=== PATIENT | male | born 1935 | race Caucasian/White ===

== ENCOUNTER 2021-06-02 10:31 | Emergency (ER) | payer MEDICARE ==
[~2021-06-02] VITALS: Ht 175.3 cm; Wt 72.6 kg
[~2021-06-02 10:31] MED LIST: ADULT LOW DOSE81 MG PO; ATENOLOL100 MG PO; GLIPIZIDE XL10 MG PO; LISINOPRIL20 MG PO; METFORMIN HCL500 MG
--- NOTE | 2021-06-04 15:38 | EKG ---
[facility] [address] [facility] [place] [address] Signed Normal sinus rhythm Left axis deviation Abnormal ECG No previous ECGs available Confirmed by YUDY KING MD ([id number]) on 06/04/2021 3:38:12 PM Electronically Signed By: YUDY KING MD 06/04/21 1538 PATIENT NAME: AKIKO GOINS Electrocardiogram DATE OF : 37 PHYSICIAN: YUDY KING MD REPORT #: [id number] REPORT IS CONFIDENTIAL AND NOT TO BE RELEASED WITHOUT AUTHORIZATION
== END 2021-06-02 20:44 | disposition short-term general hospital (02) ==
LOC: ED 10:31
DX: I63.9 Cerebral infarction, unspecified (principal); I65.23 Occlusion and stenosis of bilateral carotid arteries; Z20.822 Contact with and (suspected) exposure to COVID-19; E11.9 Type 2 diabetes mellitus without complications; I25.2 Old myocardial infarction; Z79.84 Long term (current) use of oral hypoglycemic drugs
CPT/HCPCS: 70450; 70496; 70498; 71045; 80053; 84484; 85025; 93005; 93010; 99285-25; C9803; Q9967; U0003

== ENCOUNTER 2022-01-06 17:09 | Emergency (ER) | payer OTHER, MEDICARE ==
--- NOTE | 2022-01-06 17:53 | EKG ---
[facility] [address] [facility] [place] [address] Signed Normal sinus rhythm Incomplete right bundle branch block Left anterior fascicular block Abnormal ECG When compared with ECG of 02-JUN-2021 11:32, Incomplete right bundle branch block is now present Confirmed by YUDY KING MD ([id number]) on 01/06/2022 5:53:14 PM Electronically Signed By: YUDY KING MD 01/06/22 1753 PATIENT NAME: AKIKO GOINS Electrocardiogram DATE OF : 37 PHYSICIAN: YUDY KING MD REPORT #: [id number] REPORT IS CONFIDENTIAL AND NOT TO BE RELEASED WITHOUT AUTHORIZATION
== END 2022-01-06 21:00 | disposition short-term general hospital (02) ==
LOC: ED 17:09
DX: S72.144A Nondisplaced intertrochanteric fracture of right femur, initial encounter for closed fracture (principal); W01.10XA Fall on same level from slipping, tripping and stumbling with subsequent striking against unspecified object, initial encounter; E11.9 Type 2 diabetes mellitus without complications; I25.2 Old myocardial infarction; Z79.84 Long term (current) use of oral hypoglycemic drugs
CPT/HCPCS: 36415; 70450; 71045; 73502; 80053; 84484; 85025; 93005; 93010; 99285-25; C9803; J1170; J2405; U0003

== ENCOUNTER 2024-09-16 12:32 | Emergency (ER) | payer MEDICARE ==
[~2024-09-16] VITALS: Ht 167.6 cm; Wt 76.2 kg
[2024-09-16] MEDS ORDERED: DIPHTH,PERTUSS(ACELL),TET VAC 0.5 ML SYRINGE IM ONE (13:15)
[2024-09-16] MEDS ORDERED: CITALOPRAM HBR20 MG PO (13:49)
[2024-09-16 15:39] VITALS: BP 132/84
== END 2024-09-16 15:39 | disposition home or self-care (01) ==
LOC: ED 12:32
DX: S67.195A Crushing injury of left ring finger, initial encounter (principal); E11.9 Type 2 diabetes mellitus without complications; I25.2 Old myocardial infarction; W23.0XXA Caught, crushed, jammed, or pinched between moving objects, initial encounter; Z79.899 Other long term (current) drug therapy
CPT/HCPCS: 12002; 73140; 99283